=== PATIENT | female | born 2000 | race African-American/Black ===

== ENCOUNTER 2023-06-21 22:15 | Emergency (ER) | payer OTHER ==
[~2023-06-21] VITALS: Ht 160 cm; Wt 72.3 kg
[2023-06-21 22:18] VITALS: TEMP 98.6
[2023-06-21 23:51] LABS: BASOPHILS % (AUTO) 0.6 % (0.0-2.0); EOSINOPHILS % (AUTO) 3.1 % (1.0-6.0); HEMOGLOBIN 12.1 g/dL (12.0-16.0); LYMPHOCYTES # (AUTO) 2.4 K/uL (1.0-4.8); LYMPHOCYTES % (AUTO) 38.9 % (22.0-44.0); MEAN CORPUSCULAR HEMOGLOBIN 21.8 pg (26.0-34.0); MEAN CORPUSCULAR VOLUME 70 fL (80-100); MONOCYTES # (AUTO) 0.5 K/uL (0.1-1.0); NEUTROPHILS % (AUTO) 49.4 % (40.0-70.0); PLATELET COUNT (AUTO) 236 K/uL (150-450); RED BLOOD CELL COUNT(AUTO) 5.56 MIL/uL (4.00-5.20); RED CELL DISTRIBUTION WIDTH 15.4 % (11.5-14.5)
[2023-06-22] MEDS ORDERED: PB/HYOSCY/ATR/SCOP/LIDO/MAALOX 55 ML BOTTLE PO ONE
[2023-06-22 00:01] LABS: ANION GAP 9 mmol/L (8-16); CALCIUM, TOTAL 9.1 mg/dL (8.8-10.5); CARBON DIOXIDE 29 mmol/L (22-29); CHLORIDE 102 mmol/L (98-107); CREATININE 0.79 mg/dL (0.60-1.30); GLOMERULAR FILTR. RATE CALC > 60 mL/min (>60); GLUCOSE,RANDOM 94 mg/dL (70-110); POTASSIUM 4.1 mmol/L (3.5-5.1); SODIUM SERUM 140 mmol/L (136-145)
[2023-06-22 00:15] LABS: ALANINE AMINOTRANSFERASE 17 U/L (12-78); ALBUMIN 3.6 g/dL (3.4-5.0); ALKALINE PHOSPHATASE 104 U/L (46-116); ASPARTATE AMINOTRANSFERASE 15 U/L (15-37); BILIRUBIN,TOTAL 0.2 mg/dL (0.1-1.0); HCG,QUANTITATIVE < 1 mIU/mL (0-6); LIPASE 33 U/L (16-77); TOTAL PROTEIN, SERUM 7.4 g/dL (6.4-8.2)
[2023-06-22] MEDS ORDERED: ESOM20CA31 PO (00:46)
[2023-06-22 01:04] LABS: APPEARANCE,URINE CLEAR (CLEAR); BILIRUBIN,URINE NEGATIVE (NEGATIVE); GLUCOSE, URINE (UA) NEGATIVE (NEGATIVE); KETONES,URINE NEGATIVE (NEGATIVE); LEUKOCYTE ESTERASE ,URINE NEGATIVE (NEGATIVE); NITRATE,URINE NEGATIVE (NEGATIVE); OCCULT BLOOD,URINE NEGATIVE (NEGATIVE); PROTEIN,URINE NEGATIVE (NEGATIVE); SPECIFIC GRAVITIY, URINE 1.017 (1.003-1.030); UROBILINOGEN,URINE <=1.0 mg/dL (<=1.0)
[2023-06-22 01:28] VITALS: BP 118/72; PULSE 56; RESP 14
== END 2023-06-22 01:29 | disposition home or self-care (01) ==
LOC: EMS 22:15
DX: K29.70 Gastritis, unspecified, without bleeding (principal)
CPT/HCPCS: 80053; 81003; 83690; 84702; 85025; 93005; 99284

== ENCOUNTER → 2025-06-26 | Emergency (ER) | payer OTHER ==
[~2025-06-26] VITALS: Ht 154.9 cm; Wt 69.5 kg
[~2025-06-26] MED LIST: ESOM20CA31 PO; IOHEXOL 350 MG/ML 100 ML VIAL ONE; SODIUM CHLORIDE 0.9% 0 ML ONE
[2025-06-26 18:27] VITALS: TEMP 97.9
[2025-06-26 19:04] LABS: APPEARANCE,URINE HAZY (CLEAR); GLUCOSE, URINE (UA) NEGATIVE (NEGATIVE); LEUKOCYTE ESTERASE ,URINE TRACE (NEGATIVE); NITRATE,URINE NEGATIVE (NEGATIVE); OCCULT BLOOD,URINE LARGE (NEGATIVE); SPECIFIC GRAVITIY, URINE 1.022 (1.003-1.030)
[2025-06-26 19:07] LABS: PLATELET COUNT (AUTO) 226 K/uL (150-450); RED BLOOD CELL COUNT(AUTO) 5.72 MIL/uL (4.00-5.20); RED CELL DISTRIBUTION WIDTH 16.1 % (11.5-14.5); WHITE BLOOD COUNT (AUTO) 6.7 K/uL (4.5-11.0)
[2025-06-26 19:12] LABS: SQUAMOUS EPITHELIAL CELL,UR Moderate /LPF (None Seen)
[2025-06-26 19:15] LABS: CALCIUM, TOTAL 8.9 mg/dL (8.8-10.5); CREATININE 0.91 mg/dL (0.60-1.30); GLOMERULAR FILTR. RATE CALC > 60 mL/min (>60); GLUCOSE,RANDOM 88 mg/dL (70-110); SODIUM SERUM 138 mmol/L (136-145); UREA NITROGEN, BLOOD 12 mg/dL (7-18)
[2025-06-26 19:26] LABS: HCG,QUANTITATIVE < 1 mIU/mL (0-6)
[2025-06-26 19:33] LABS: RBC MORPHOLOGY COMMENT ABNORMAL RBC MORPH
[2025-06-26] MEDS: ONDANSETRON HCL 4 MG/2 ML VIAL IVP ONE (21:31)
[2025-06-26] MEDS: SODIUM CHLORIDE 0.9% 1,000 ML IV ONE (21:31)
[2025-06-26] MEDS: KETOROLAC TROMETHAMINE 30 MG/ML VIAL IVP ONE (21:31)
[2025-06-26 23:19] VITALS: BP 109/66; PULSE 77; RESP 15; O2SAT 100
== END | disposition home or self-care (01) ==
LOC: EMS 18:19
DX: R10.9 Unspecified abdominal pain (principal)
CPT/HCPCS: 99284; 96374; 96375; 80048; 81001; 82150; 83690; 84702; 85025; 36415; J1885; Q9967; J2405; J7030; J7050